=== PATIENT | female | born 1995 | race African-American/Black ===

== ENCOUNTER 2022-12-07 01:46 | Emergency (ER) | payer MEDICAID ==
[~2022-12-07] VITALS: Ht 172.7 cm; Wt 75.0 kg
[2022-12-07 01:55] VITALS: BP 132/90
== END 2022-12-07 04:30 | disposition left against medical advice (07) ==
LOC: ER 01:46
DX: Z53.21 Procedure and treatment not carried out due to patient leaving prior to being seen by health care provider (principal); M54.50 Low back pain, unspecified; F41.9 Anxiety disorder, unspecified
CPT/HCPCS: 99281